=== PATIENT | female | born 1975 | race Caucasian/White ===

== ENCOUNTER 2018-02-14 12:00 | Day surgery (SDC) | payer OTHER ==
[~2018-02-14 12:00] MED LIST: PYRIDIUM100 M1 PO
== END 2018-02-14 20:15 | disposition home or self-care (01) ==
LOC: CIR.AMB 12:00
DX: O02.1 Missed abortion (principal); Z3A.01 Less than 8 weeks gestation of pregnancy

== ENCOUNTER 2019-04-24 15:51 | Inpatient (IN) | payer OTHER ==
[~2019-04-24] VITALS: Ht 170.2 cm; Wt 3.6 kg
[2019-05-01] MEDS ORDERED: TOPROL XL25 M1 PO (13:57)
[2019-05-01] MEDS ORDERED: PRENATABS FA T1 EACH PO (13:57)
== END 2019-05-15 13:26 | disposition home or self-care (01) | DRG 788 ==
LOC: OB/GYN 05-01 12:30 → O/R 05-13 10:04 → SURG-SUITE 05-13 10:04 → OB/GYN 05-13 12:30 → SURG-SUITE 05-13 21:44
PROVIDERS: ADMIT Obstetrics & Gynecology
PROC: 4A1HXCZ Monitoring of Products of Conception, Cardiac Rate, External Approach (ICD-10-PCS; 2019-05-13)
PROC: 10D00Z1 Extraction of Products of Conception, Low, Open Approach (ICD-10-PCS; principal; 2019-05-13 09:30)
DX: O82 Encounter for cesarean delivery without indication (principal); Z3A.39 39 weeks gestation of pregnancy; Z37.0 Single live birth